=== PATIENT | female | born 1965 | race African-American/Black ===

== ENCOUNTER 2016-11-12 18:59 | Emergency (ER) | payer OTHER ==
[~2016-11-12] VITALS: Ht 162.6 cm; Wt 72.6 kg
[2016-11-12] MEDS ORDERED: OMEPRAZOLE20 M2 ORAL (19:25)
[2016-11-12] MEDS ORDERED: AMLODIPINE BESY10 MG ORAL (19:25)
[2016-11-12] MEDS ORDERED: ALBUTEROL SULF8.5 GM INH (19:25)
[2016-11-12 19:48] VITALS: BP 159/81
[2016-11-12 20:00] LABS: MEAN CORPUSCULAR HEMOGLOBIN 15.8 PG (27.0-31.0); MEAN CORPUSCULAR HGB CONC 26.3 G/DL (32.0-36.0); MEAN CORPUSCULAR VOLUME 60 FL (80-99); PLATELET COUNT 261 K/UL (150-450); RED BLOOD COUNT 3.85 M/UL (4.20-5.40); RED CELL DISTRIBUTION WIDTH 17.2 % (11.6-14.8); WHITE BLOOD COUNT 9.4 K/UL (4.8-10.8)
[2016-11-12 20:20] LABS: INR 0.9 (0.9-1.1); PROTHROMBIN TIME 9.4 SEC (9.30-11.50)
[2016-11-12 20:25] LABS: ALANINE AMINOTRANSFERASE 8 U/L (3-33); ANION GAP 14 (5-15); ASPARTATE AMINO TRANSFERASE 14 U/L (5-40); CALCIUM 8.7 mg/dL (8.6-10.2); CARBON DIOXIDE 25 mEQ/L (20-30); CHLORIDE 104 mEQ/L (98-107); CREATININE 0.7 mg/dL (0.5-0.9); GLOMERULAR FILTRATION RATE > 60 mL/min (>60); HEMOLYSIS 0; POTASSIUM 3.6 mEQ/L (3.4-4.9); SODIUM 143 mEQ/L (135-145)
[2016-11-12 21:30] LABS: BAND NEUTROPHILS % (MANUAL) 0 % (0-8); BASOPHILS % (MANUAL) 1 % (0-2); EOSINOPHILS % (MANUAL) 4 % (0-3); LYMPHOCYTES % (MANUAL) 14 % (20-45); NEUTROPHILS % (MANUAL) 75 % (45-75); PLATELET ESTIMATE ADEQUATE; PLATELET MORPHOLOGY NORMAL; TOTAL CELLS COUNTED 100
[2016-11-12 21:31] LABS: ANISOCYTOSIS 2+; HYPOCHROMASIA 3+; POLYCHROMASIA 2+
[2016-11-12 21:55] VITALS: BP 147/81
--- NOTE | 2016-11-12 23:19 | Emergency Room Report ---
History of Present Illness General Chief Complaint: Abnormal Labs Source: Patient Present Illness HPI 50-year-old female presents ED for evaluation. Patient states she was told by her PMD that her hemoglobin was low (6.3). Stated she had lab work done recently for routine checkup. Patient does have history of anemia. Patient never received transfusion in the past. States that she has been feeling weaker than usual for the last several weeks. Denies any blood in stool or vaginal bleeding. Denies any chest pain or shortness of breath. No other aggravating relieving factors. Denies any other associated symptoms Allergies: Coded Allergies: No Known Allergies (Unverified , 11/12/16) Patient History Past Medical History: HTN, asthma, GERD Pertinent Family History: none Social History: Denies: alcohol use, drug use, smoking Last Menstrual Period: 10/21/2016 Now: No Immunizations: UTD Reviewed Nursing Documentation: PMH: Agreed, PSxH: Agreed Nursing Documentation-PMH Past Medical History: No History, Except For Hx Hypertension: Yes Hx Asthma: Yes Hx Gastrointestinal Problems: Yes - GERD Review of Systems All Other Systems: negative except mentioned in HPI Physical Exam Vital Signs Date Time Temp Pulse Resp B/P Pulse Ox O2 Delivery O2 Flow Rate FiO2 11/12/16 19:18 99.5 94 18 159/81 100 Room Air Sp02 EP Interpretation: reviewed, normal General Appearance: no apparent distress, alert, GCS 15, non-toxic Head: normocephalic, atraumatic Eyes: bilateral eye PERRL, bilateral eye normal inspection ENT: hearing grossly normal, normal pharynx, no angioedema, normal voice Neck: full range of motion, supple/symm/no masses Respiratory: chest non-tender, lungs clear, normal breath sounds, speaking full sentences Cardiovascular #1: regular rate, rhythm, no edema Cardiovascular #2: 2+ carotid (R), 2+ carotid (L), 2+ radial (R), 2+ radial (L) , 2+ dorsalis pedis (R), 2+ dorsalis pedis (L) Gastrointestinal: normal bowel sounds, non tender, soft, non-distended, no guarding, no rebound Rectal: deferred Genitourinary: normal inspection, no CVA tenderness Musculoskeletal: back normal, gait/station normal, normal range of motion, non- tender Neurologic: alert, oriented x3, responsive, motor strength/tone normal, sensory intact, speech normal Psychiatric: judgement/insight normal, memory normal, mood/affect normal, no suicidal/homicidal ideation Reflexes: 3+ bicep (R), 3+ bicep (L), 3+ tricep (R), 3+ tricep (L), 3+ knee (R) , 3+ knee (L) Skin: normal color, no rash, warm/dry, well hydrated Lymphatic: no adenopathy Medical Decision Making Diagnostic Impression: Primary Impression: Anemia requiring transfusions Additional Impression: Microcytic anemia ER Course Hospital Course 50-year-old female presents to ED for evaluation of possible anemia, with possible transfusion Differential diagnoses include: anemia requiring transfusion, microcytic anemia , macrocytic anemia, heavy blood loss Clinical course Patient placed on stretcher. After initial history and physical I ordered labs including CBC and type and screen. Labs- hemoglobin/hematocrit 6.1/23.1. MCV 60. Electrolytes okay, no leukocytosis Patient otherwise feels well, stable vitals, no active bleeding. Because of insurance patient will be transferred Diagnosis - anemia requiring transfusions, microcytic anemia Transfer in serious condition Labs Test 11/12/16 19:25 White Blood Count 9.4 K/UL (4.8-10.8) Red Blood Count 3.85 M/UL (4.20-5.40) Hemoglobin 6.1 G/DL (12.0-16.0) Hematocrit 23.1 % (37.0-47.0) Mean Corpuscular Volume 60 FL (80-99) Mean Corpuscular Hemoglobin 15.8 PG (27.0-31.0) Mean Corpuscular Hemoglobin Concent 26.3 G/DL (32.0-36.0) Red Cell Distribution Width 17.2 % (11.6-14.8) Platelet Count 261 K/UL (150-450) Mean Platelet Volume 8.0 FL (6.5-10.1) Neutrophils (%) (Auto) % (45.0-75.0) Lymphocytes (%) (Auto) % (20.0-45.0) Monocytes (%) (Auto) % (1.0-10.0) Eosinophils (%) (Auto) % (0.0-3.0) Basophils (%) (Auto) % (0.0-2.0) Differential Total Cells Counted 100 Neutrophils % (Manual) 75 % (45-75) Lymphocytes % (Manual) 14 % (20-45) Monocytes % (Manual) 6 % (1-10) Eosinophils % (Manual) 4 % (0-3) Basophils % (Manual) 1 % (0-2) Band Neutrophils 0 % (0-8) Platelet Estimate Adequate Platelet Morphology Normal Polychromasia 2+ Hypochromasia 3+ Anisocytosis 2+ Prothrombin Time 9.4 SEC (9.30-11.50) Prothromb Time International Ratio 0.9 (0.9-1.1) Activated Partial Thromboplast Time 23 SEC (23-33) Sodium Level 143 mEQ/L (135-145) Potassium Level 3.6 mEQ/L (3.4-4.9) Chloride Level 104 mEQ/L (98-107) Carbon Dioxide Level 25 mEQ/L (20-30) Anion Gap 14 (5-15) Blood Urea Nitrogen 9 mg/dL (7-23) Creatinine 0.7 mg/dL (0.5-0.9) Estimat Glomerular Filtration Rate > 60 mL/min (>60) Glucose Level 92 mg/dL (74-106) Calcium Level 8.7 mg/dL (8.6-10.2) Total Bilirubin 0.2 mg/dL (0.0-1.2) Aspartate Amino Transf (AST/SGOT) 14 U/L (5-40) Alanine Aminotransferase (ALT/SGPT) 8 U/L (3-33) Alkaline Phosphatase 106 U/L (35-104) Total Protein 8.0 g/dL (6.6-8.7) Albumin 4.1 g/dL (3.5-5.2) Globulin 3.9 g/dL Albumin/Globulin Ratio 1.0 (1.0-2.7) Last Vital Signs Date Time Temp Pulse Resp B/P Pulse Ox O2 Delivery O2 Flow Rate FiO2 11/12/16 21:55 97.0 99 20 147/81 99 Room Air Status: improved Disposition: XFER SHT-TRM HOSP Condition: Serious Referrals: NON PHYSICIAN (PCP) RIO GALLOWAY M.D. Nov 12, 2016 23:19
[2016-11-12 23:40] VITALS: BP 165/74
[2016-11-13 00:05] VITALS: BP 165/74
[2016-11-13 00:15] LABS: APPEARANCE,URINE CLEAR; KETONES,URINE NEGATIVE (NEGATIVE); LEUKOCYTE ESTERASE ,URINE NEGATIVE (NEGATIVE); NITRITE,URINE NEGATIVE (NEGATIVE); PH,URINE 6 (4.5-8.0); PROTEIN,URINE NEGATIVE (NEGATIVE); UROBILINOGEN,URINE NORMAL MG/DL (0.0-1.0)
[2016-11-13 00:29] LABS: BACTERIA,URINE FEW /HPF; RBC,URINE 0-2 /HPF (0 - 2); SQUAMOUS EPITHELIAL CELL,UR FEW /LPF (NONE/OCC); WBC,URINE 0-2 /HPF (0 - 2)
[2016-11-17 12:36] LABS: OTHERS PATHOLOGIST COMMENT
== END 2016-11-13 00:05 | disposition short-term general hospital (02) ==
LOC: EMR 19:55 → EDBEDREQ 22:11 → EMR 11-13 00:05
DX: D50.9 Iron deficiency anemia, unspecified (principal); I10 Essential (primary) hypertension; J45.909 Unspecified asthma, uncomplicated; K21.9 Gastro-esophageal reflux disease without esophagitis
CPT/HCPCS: 36415; 80053; 81001; 85007; 85025; 85610; 85730; 86850; 86900; 86901; 86920; 99284